=== PATIENT | male | born 1980 | race Caucasian/White ===

== ENCOUNTER 2017-05-16 17:49 | Emergency (ER) | payer OTHER ==
[2017-05-16] MEDS ORDERED: Lidocaine 1% 20 ML MDV ONE (17:59)
[2017-05-16] MEDS ORDERED: Sulfameth/Trimethoprim DS 800-160mg TAB ONE (18:14)
== END 2017-05-16 18:32 | disposition home or self-care (01) ==
LOC: NAV ERS 17:49
DX: L02.221 Furuncle of abdominal wall (principal); F43.10 Post-traumatic stress disorder, unspecified; Z79.1 Long term (current) use of non-steroidal anti-inflammatories (NSAID)
CPT/HCPCS: 10060; 87070; 87077; 87186; 87205; J2001

== ENCOUNTER 2017-05-17 19:24 | Emergency (ER) | payer OTHER ==
[2017-05-17] MEDS ORDERED: Lidocaine 1% 20 ML MDV ONE (19:33)
== END 2017-05-17 19:51 | disposition home or self-care (01) ==
LOC: NAV ERS 19:24
DX: L02.413 Cutaneous abscess of right upper limb (principal); F43.10 Post-traumatic stress disorder, unspecified
CPT/HCPCS: 10060; J2001

== ENCOUNTER 2017-05-19 17:16 | Emergency (ER) | payer OTHER | END 2017-05-19 17:53 | disposition home or self-care (01) | LOC: NAV ERS 17:16 | DX: Z48.817 Encounter for surgical aftercare following surgery on the skin and subcutaneous tissue (principal); Z48.01 Encounter for change or removal of surgical wound dressing; F43.10 Post-traumatic stress disorder, unspecified; Z79.1 Long term (current) use of non-steroidal anti-inflammatories (NSAID); Z79.899 Other long term (current) drug therapy | CPT/HCPCS: 99282 ==

== ENCOUNTER 2017-05-21 17:33 | Emergency (ER) | payer OTHER | END 2017-05-21 18:15 | disposition home or self-care (01) | LOC: NAV ERS 17:33 | DX: Z48.817 Encounter for surgical aftercare following surgery on the skin and subcutaneous tissue (principal); Z48.01 Encounter for change or removal of surgical wound dressing; F43.10 Post-traumatic stress disorder, unspecified | CPT/HCPCS: 99282 ==

== ENCOUNTER 2017-10-08 13:51 | Emergency (ER) | payer MEDICARE, OTHER | END 2017-10-08 14:15 | disposition home or self-care (01) | LOC: NAV ERS 13:51 | DX: H69.91 Unspecified Eustachian tube disorder, right ear (principal); G89.29 Other chronic pain; Z79.899 Other long term (current) drug therapy | CPT/HCPCS: 99282 ==